=== PATIENT | male | born 1985 | race African-American/Black ===

== ENCOUNTER 2023-07-09 07:59 | Emergency (ER) | payer MEDICAID, OTHER ==
[~2023-07-09] VITALS: Ht 185.4 cm; Wt 85.0 kg
[2023-07-09 08:31] VITALS: TEMP 98.6; O2SAT 100
[2023-07-09 09:30] VITALS: BP 143/85; PULSE 88; RESP 18
[2023-07-09] MEDS ORDERED: IBUPROFEN 600MG TABLET PO ONE (09:30)
[2023-07-09] MEDS ORDERED: NAPR220C61 MT (10:04)
== END 2023-07-09 10:31 | disposition home or self-care (01) ==
LOC: ER 08:19
DX: S49.91XA Unspecified injury of right shoulder and upper arm, initial encounter (principal); W18.30XA Fall on same level, unspecified, initial encounter; Y93.61 Activity, american tackle football; Y92.89 Other specified places as the place of occurrence of the external cause; Y99.8 Other external cause status
CPT/HCPCS: 73030; 99283